=== PATIENT | female | born 1945 | race Caucasian/White ===

== ENCOUNTER 2019-03-27 16:11 | Emergency (ER) | payer MEDICARE ==
[~2019-03-27] VITALS: Ht 170.2 cm; Wt 50.0 kg
[~2019-03-27 16:11] MED LIST: ALBU18HF2 INH
[2019-03-27 17:43] VITALS: BP 126/77
== END 2019-03-27 17:49 | disposition home or self-care (01) ==
LOC: ER 16:11
DX: S83.91XA Sprain of unspecified site of right knee, initial encounter (principal); I10 Essential (primary) hypertension; Z90.89 Acquired absence of other organs; M81.0 Age-related osteoporosis without current pathological fracture; X50.1XXA Overexertion from prolonged static or awkward postures, initial encounter; Y93.89 Activity, other specified; Y92.89 Other specified places as the place of occurrence of the external cause; Y99.8 Other external cause status
CPT/HCPCS: 29505; 73564; 99284

== ENCOUNTER 2019-08-08 10:39 | Emergency (ER) | payer MEDICARE ==
[~2019-08-08] VITALS: Ht 170.2 cm; Wt 45.3 kg
[2019-08-08 10:47] VITALS: BP 128/71
[2019-08-08] MEDS ORDERED: ACET-2119 PO (11:48)
== END 2019-08-08 12:53 | disposition home or self-care (01) ==
LOC: ER 10:39
DX: S52.611A Displaced fracture of right ulna styloid process, initial encounter for closed fracture (principal); S52.501A Unspecified fracture of the lower end of right radius, initial encounter for closed fracture; I10 Essential (primary) hypertension; M81.0 Age-related osteoporosis without current pathological fracture; Z90.49 Acquired absence of other specified parts of digestive tract; Z98.890 Other specified postprocedural states; Z87.891 Personal history of nicotine dependence; Z79.899 Other long term (current) drug therapy; W11.XXXA Fall on and from ladder, initial encounter; Y93.89 Activity, other specified; Y92.89 Other specified places as the place of occurrence of the external cause; Y99.8 Other external cause status
CPT/HCPCS: 29125; 73110; 99284